=== PATIENT | female | born 1980 | race Caucasian/White ===

== ENCOUNTER → 2018-04-20 | Outpatient (CLI) | payer OTHER | LOC: FIMAGING 08:27 | PROVIDERS: ATTEND Obstetrics & Gynecology | DX: O09.512 Supervision of elderly primigravida, second trimester (principal); O44.02 Complete placenta previa NOS or without hemorrhage, second trimester; O99.412 Diseases of the circulatory system complicating pregnancy, second trimester; O99.512 Diseases of the respiratory system complicating pregnancy, second trimester; I45.9 Conduction disorder, unspecified; J45.909 Unspecified asthma, uncomplicated; Z3A.19 19 weeks gestation of pregnancy ==

== ENCOUNTER 2018-09-08 06:00 | Inpatient (IN) | payer OTHER ==
[2018-09-08] MEDS ORDERED: TERBUTALINE SULFATE 1 MG/ML VIAL IV PRN (06:58)
[2018-09-08] MEDS ORDERED: OLIVE OIL 118 ML BTL MISC PRN (06:58)
[2018-09-08] MEDS ORDERED: LR 1,000 ML IV PRN (06:58)
[2018-09-08] MEDS ORDERED: LIDOCAINE 1% 300 MG/30 ML SDV SC PRN (06:58)
[2018-09-08] MEDS ORDERED: OXYTOCIN/RINGERS LACTATE 1,000 ML IV PRN (06:58)
[2018-09-08] MEDS ORDERED: MISOPROSTOL 200 MCG TAB PR PRN (06:58)
[2018-09-08] MEDS ORDERED: EPSOM SALT 454 GM TP PRN (06:58)
[2018-09-08] MEDS ORDERED: IBUPROFEN 600 MG TAB PO PRN (06:58)
[2018-09-08 07:13] LABS: PLATELET COUNT 207 10^3/uL (150-400)
[2018-09-08] MEDS ORDERED: OXYTOCIN/RINGERS LACTATE 500 ML IV SCH (07:30)
[2018-09-08] MEDS ORDERED: AMMONIA AROMATIC 1 EACH AMP IH ONE (07:52)
[2018-09-08] MEDS ORDERED: LIDOCAINE 1% 300 MG/30 ML SDV ONE (07:52)
[2018-09-08] MEDS ORDERED: OLIVE OIL 118 ML BTL ONE (07:52)
[2018-09-08] MEDS ORDERED: MISOPROSTOL 200 MCG TAB ONE (07:53)
[2018-09-08] MEDS ORDERED: OXYTOCIN 10 UNIT/ML VIAL ONE (07:53)
[2018-09-08] MEDS ORDERED: TERBUTALINE SULFATE 1 MG/ML VIAL ONE (07:53)
--- NOTE | 2018-09-08 08:28 | PDGENHP ---
History and Physical - Chief Complaint Elective IOL - History of Present Illness 37 yo G1 at 40w0d by FELY on 08/29/18 (LMP c/w many 1st tri USs - she's a rn rehab at [facility]) - presents for elective/AMA IOL. Saw her in clinic yesterday afernoon where she was FT/40//-2 and I placed a Cook's balloon. Presented this AM reporting mild cramps overnight, but no regular contractions. Balloon still in place. 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 Does follow with Dr. Chaparro at [facility], no meds, and she has been cleared for routine labor and pushing/vaginal delivery. H/o LEEP in patient's 20's. Asthma (albuterol PRN). Torn rectus muscle off of pelvic attachment (has been seeing PT for this). Rh neg. Low lying placenta that resolved on 29 wk scan. Failed Glucola, passed 3hr GTT. Labs: A negative Antibody neg RPR NR Rubella IMMUNE HepB/HIV neg VZV IMMUNE GC/C neg AFP normal Quad neg 28 wk H/H 11.1/ Glucola 135 - Normal 3hr GBS NEGATIVE History Information - Allergies/Home Medication List Allergies/Adverse Reactions: No Known Allergies Allergy (Unverified 09/08/18 06:58) Home Medications: Albuterol [Proventil Inhaler HFA (*)] 09/08/18 [Last Taken Unknown] Breo Ellipta 100-25 Mcg INH PO 09/08/18 [Last Taken 09/08/18 06:00] Docusate Sodium [Colace] 09/08/18 [Last Taken 09/07/18 20:00] 09/08/18 [Last Taken 09/08/18] I have personally reviewed and updated: family history, medical history, social history, surgical history - Past Medical History Additional medical history: Variable AV (1st and 2nd degree) heart block, Anemia , Cervical dysplasia, Recctus muscle avulsion, AMA - Surgical History Additional surgical history: LEEP in 20s - Family History Positive for: non-pertinent - Social History Smoking Status: Former smoker (1 yr in college) Alcohol Use: None Review of Systems Review of Systems: ROS: 10pt was reviewed & negative except for what was stated in HPI & below Physical Exam Physical Exam: Appears well, comfortable, pleasant, NAD. Belly is soft, ND, gravid, longitudinal lie. Lab Data & Imaging Review 09/08/18 06:30 WBC 12.58 10^3/uL (3.80-9.50) H 09/08/18 06:30 RBC 4.00 10^6/uL (4.18-5.33) L 09/08/18 06:30 Hgb 11.7 g/dL (12.6-16.3) L 09/08/18 06:30 Hct 35.5 % (38.0-47.0) L 09/08/18 06:30 MCV 88.8 fL (81.5-99.8) 09/08/18 06:30 MCH 29.3 pg (27.9-34.1) 09/08/18 06:30 MCHC 33.0 g/dL (32.4-36.7) 09/08/18 06:30 RDW 15.4 % (11.5-15.2) H 09/08/18 06:30 Plt Count 207 10^3/uL (150-400) 09/08/18 06:30 MPV 10.4 fL (8.7-11.7) 09/08/18 06:30 Neut % (Auto) 77.2 % (39.3-74.2) H 09/08/18 06:30 Lymph % (Auto) 15.8 % (15.0-45.0) 09/08/18 06:30 [place] % (Auto) 4.8 % (4.5-13.0) 09/08/18 06:30 Eos % (Auto) 1.3 % (0.6-7.6) 09/08/18 06:30 Baso % (Auto) 0.3 % (0.3-1.7) 09/08/18 06:30 Nucleat RBC Rel Count 0.0 % (0.0-0.2) 09/08/18 06:30 Absolute Neuts (auto) 9.70 10^3/uL (1.70-6.50) H 09/08/18 06:30 Absolute Lymphs (auto) 1.99 10^3/uL (1.00-3.00) 10/24/18 06:30 Absolute Monos (auto) 0.61 10^3/uL (0.30-0.80) 09/08/18 06:30 Absolute Eos (auto) 0.16 10^3/uL (0.03-0.40) 09/08/18 06:30 Absolute Basos (auto) 0.04 10^3/uL (0.02-0.10) 09/08/18 06:30 Absolute Nucleated RBC 0.00 10^3/uL (0-0.01) 09/08/18 06:30 Immature Gran % 0.6 % (0.0-1.1) 09/08/18 06:30 Immature Gran # 0.08 10^3/uL (0.00-0.10) 09/08/18 06:30 Patient ABO/Rh A NEGATIVE 09/08/18 06:30 Antibody Screen NEGATIVE 09/08/18 06:30 Assessment & Plan Assessment: 37 yo G1 at 40w0d here for AMA/Elective IOL. IOL: - Will start Pit this AM and check and potentially take down balloon if not out spontaneously in the next 4 hours. AROM if needed. - FT/40/-2 in clinic yesterday AM prior to medeiros placement. - GBS negative. - Will want epidural, regular diet for now - aware of 2 hrs prior to epidural NPO. Variable AV Block: - No meds, no changes to labor management, inform anesthesia. Rh neg - RhoGam PP if indicated. Asthma - Albuterol PRN. GIA
[2018-09-08] MEDS ORDERED: BUPIVACAINE 0.25% 30 ML SDV ONE (14:51)
[2018-09-08] MEDS ORDERED: PHENYLEPHRINE HCL 100 MCG/ML SYR ONE (14:51)
[2018-09-08] MEDS ORDERED: fentaNYL 2MCG/ML/BUP 0.1% RTU 100 ML BAG EP ONE (14:51)
[2018-09-08] MEDS ORDERED: fentaNYL 100 MCG/2 ML INJ ONE (14:52)
[2018-09-08] MEDS ORDERED: ONDANSETRON 4 MG/2 ML VIAL IVP PRN (17:50)
[2018-09-08] MEDS ORDERED: PHENYLEPHRINE HCL 100 MCG/ML SYR IVP PRN (17:50)
--- NOTE | 2018-09-08 17:55 | PREANESOB ---
Obstetric Pre-Anesthesia Info - General Info Proposed Procedure: Labor and delivery with pitocin. : 1 Para: 0 FELY: 09/08/18 Gestational Age: 40 week(s) and 0 day(s) - Info Status: Full Term Monitors: External FHR Baseline (bpm): 135 FHR Pattern: Reassuring - Labor Status Cervical Dilation per last OB SVE: 3 Pitocin: In Use Indications for Labor Analgesia: Induction of Labor, Pain Control Labor Epidural: Proposed Anesthesia ROS: Prior general anesthesia. Allergies/Adverse Reactions: Allergy/AdvReac Type Severity Reaction Status Date / Time No Known Allergies Allergy Unverified 09/08/18 06:58 Home Medications: Medication Instructions Recorded Albuterol [Proventil Inhaler HFA 09/08/18 (*)] Breo Ellipta 100-25 Mcg INH PO 09/08/18 Docusate Sodium [Colace] 09/08/18 09/08/18 Visit Medications: Generic Name Dose Route Start Last Admin Trade Name Freq PRN Reason Stop Dose Admin Diphenhydramine HCl 25 - 50 mg 09/08/18 17:50 Benadryl Injection IVP 03/07/19 17:49 Q6HRS PRN Itching Lactated Ringer's 1,000 mls @ 0 mls/hr 09/08/18 06:58 09/08/18 07:52 Lr IV 09/09/18 06:57 1,000 mls PRN PRN Administration SEE PROTOCOL CONDITIONS Protocol Per Protocol Oxytocin/Lactated Ringer's 1,000 mls @ 125 mls/hr 09/08/18 06:58 Pitocin 20 Units/Lr (Premix) IV PRN PRN Post bleeding Oxytocin/Lactated Ringer's 500 mls @ 0 mls/hr 09/08/18 07:30 09/08/18 07:52 Pitocin 30 Units/Lr (Premix) IV 03/07/19 07:29 500 mls CONT SATYA Administration Per Protocol Fentanyl/Bupivacaine HCl 100 mls @ 0 mls/hr 09/08/18 18:00 Fentanyl/Bupivacaine/Ns 2 Mcg/Ml 0.1% (Premix EP 09/18/18 17:59 CONT SATYA Protocol As Directed Lactated Ringer's 500 mls @ 0 mls/hr 09/08/18 18:00 Lr IV 03/07/19 17:59 CONT SATYA As Directed Ibuprofen 600 mg 09/08/18 06:58 Motrin PO ONCE PRN post , pain Lidocaine HCl 300 mg 09/08/18 06:58 Lidocaine Hcl 1% SC 03/07/19 06:57 ONCE PRN episiotomy Magnesium Sulfate 454 gm 09/08/18 06:58 Epsom Salt TP 03/07/19 06:57 Q1H PRN perineal discomfort Misoprostol 800 - 1,000 mcg 09/08/18 06:58 Cytotec NC ONCE PRN Vaginal Atony/Bleeding [place] Oil 118 ml 09/08/18 06:58 Sweet Oil MISC 03/07/19 06:57 ONCE PRN perineal massage Ondansetron HCl 4 mg 09/08/18 17:50 Zofran IVP 09/09/18 17:49 Q4HRS PRN Nausea/Vomiting, Can't Take PO Phenylephrine HCl 100 mcg 09/08/18 17:50 Neosynephrine IVP 03/07/19 17:49 .Q2M PRN Hypotension Terbutaline Sulfate 0.25 mg 09/08/18 06:58 Brethine IV 03/07/19 06:57 ONCE PRN Tachysystole Discontinued Medications Generic Name Dose Route Start Last Admin Trade Name Freq PRN Reason Stop Dose Admin Ammonia (Aromatic Spirit) Confirm 09/08/18 07:52 Ammonia Aromatic Administered 09/08/18 07:53 Dose 1 each IH .STK-MED ONE Bupivacaine HCl Confirm 09/08/18 14:51 Sensorcaine 0.25% Sdv Administered 09/08/18 14:52 Dose 30 ml .ROUTE .STK-MED ONE Fentanyl Confirm 09/08/18 14:52 Sublimaze Administered 09/08/18 14:53 Dose 100 mcg .ROUTE .STK-MED ONE Fentanyl/Bupivacaine HCl Confirm 09/08/18 14:51 Fentanyl/Bupivacaine/Ns 2 Mcg/Ml 0.1% (Premix Administered 09/08/18 14:52 Dose 100 ml EP .STK-MED ONE Lidocaine HCl Confirm 09/08/18 07:52 Lidocaine Hcl 1% Administered 09/08/18 07:53 Dose 300 mg .ROUTE .STK-MED ONE Misoprostol Confirm 09/08/18 07:53 Cytotec Administered 09/08/18 07:54 Dose 1,000 mcg .ROUTE .STK-MED ONE [place] Oil Confirm 09/08/18 07:52 Sweet Oil Administered 09/08/18 07:53 Dose 118 ml .ROUTE .STK-MED ONE Oxytocin Confirm 09/08/18 07:53 Pitocin Administered 09/08/18 07:54 Dose 40 unit .ROUTE .STK-MED ONE Phenylephrine HCl Confirm 09/08/18 14:51 Neosynephrine Administered 09/08/18 14:52 Dose 1,000 mcg .ROUTE .STK-MED ONE Terbutaline Sulfate Confirm 09/08/18 07:53 Brethine Administered 09/08/18 07:54 Dose 1 mg .ROUTE .STK-MED ONE - Anesthesia History Response to Local Anesthetics: Normal Anesthesia & Operative History: No Prior Problems Family Anesthesia History: Negative - Social History Substance Use/Abuse: Denies - Vital Signs Blood Pressure: 121/66 Heart Rate: 81 Height/Weight (Nursing): Height 172.72 cm Weight 81.647 kg - Focused Exam Neck exam: FROM Mallampati Score: Class 1 Mouth exam: normal dental/mouth exam Pulmonary: no respiratory distress (History of mild asthma but no wheezing with this admission.) Cardiovascular: regular rate and rhythym (Past history of episodic second degree heart block resulting in fainting but has been cleared by cardiology for labor and delivery without any extra treatment or precautions.) Labs: 09/08/18 06:30 Patient ABO/Rh A NEGATIVE 09/08/18 06:30 - Plan Anesthetic Plan: CSE Consent Signed and on Chart: Yes Patient/Guardian Understands and Agrees to Plan: Yes Urgent/Emergent Case: Katalina madrid completed preop but documented later for safe timely pt care
[2018-09-08] MEDS ORDERED: fentaNYL 2MCG/ML/BUP 0.1% RTU 100 ML EP SCH (18:00)
[2018-09-08] MEDS ORDERED: LR 500 ML IV SCH (18:00)
--- NOTE | 2018-09-08 18:05 | POSTANESTH ---
Post Anesthetic Evaluation Cardiovascular Status: Normal, Stable, Similar to Pre-Op Cond Respiratory Status: Normal, Stable, Similar to Pre-op Cond., Requires Airway Assist Level of Consciousness/Mental Status: Alert and Oriented Pain Control: Adequate, Prn Tx Ordered Nausea/Vomiting Control: Adequate, Prn Tx Ordered Complications Possibly Related to Anesthesia: None Noted
--- NOTE | 2018-09-08 19:32 | OBPROG ---
Labor Progress Note Assessment/Plan: Assessment: 37 yo G1 at 40w0d - elective/AMA IOL. - Slow progress in latent labor, IUPC placed during this exam. - May have some scar tissue from h/o LEEP in her 20's. - OK to titrate Pit to 30. - Category II tracing, occasional early and variable decels. Overall reassuring. - Comfortable with epidural. JM Subjective/Intrapartum Course: Comfortable with epidural - can still sense ctx's, but not painful. Objective: 09/08/18 06:30 Patient ABO/Rh A NEGATIVE 09/08/18 06:30 Temp Pulse Resp BP Pulse Ox 81 121/66 H 09/08/18 18:05 09/08/18 18:05 - SVE Dilation (cm): 4 Effacement (%): 75 Station: -2 Membranes: AROM (Clear) Amniotic Fluid Color: Clear - Contraction Pattern Assessment Current Contraction Pattern: Regular - FHR Assessment [place] FHR (bpm): 135 FHR Pattern Variability: Moderate FHR Category: 2 - Procedures Non-surgical Procedures: Amniotomy, IUPC (During this exam) Oxytocin Orders Assessment - Pre-Induction/Augmentation Assessment Gestational Age: 40 week(s) and 0 day(s) ICD10 Worksheet Patient Problems: Problems Problem Status Onset Encounter for induction of labor Acute - ICD10 Problem Qualifiers (1) Encounter for induction of labor
[2018-09-08] MEDS ORDERED: ACETAMINOPHEN 500 MG TAB PO PRN (23:34)
--- NOTE | 2018-09-09 01:26 | OBDEL ---
Info Type: Vaginal Presentation at Delivery: Vertex L&D Analgesia/Anesthesia Type: Epidural GBS+: No Intrapartum Medications: Generic Name Dose Route Start Last Admin Trade Name Marilu PRN Reason Stop Dose Admin Acetaminophen 1,000 mg 09/08/18 23:34 09/08/18 23:45 Tylenol PO 03/07/19 23:33 1,000 mg Q6 PRN Administration FEVER/PAIN Diphenhydramine HCl 25 - 50 mg 09/08/18 17:50 09/08/18 19:14 Benadryl Injection IVP 03/07/19 17:49 25 mg Q6HRS PRN Administration Itching Lactated Ringer's 1,000 mls @ 0 mls/hr 09/08/18 06:58 09/08/18 07:52 Lr IV 09/09/18 06:57 1,000 mls PRN PRN Administration SEE PROTOCOL CONDITIONS Protocol Per Protocol Oxytocin/Lactated Ringer's 500 mls @ 0 mls/hr 09/08/18 07:30 09/08/18 07:52 Pitocin 30 Units/Lr (Premix) IV 03/07/19 07:29 500 mls CONT SATYA Administration Per Protocol Fentanyl/Bupivacaine HCl 100 mls @ 0 mls/hr 09/08/18 18:00 09/08/18 21:53 Fentanyl/Bupivacaine/Ns 2 Mcg/Ml 0.1% (Premix EP 09/18/18 17:59 100 mls CONT SATYA Administration Protocol As Directed Discontinued Medications Generic Name Dose Route Start Last Admin Trade Name Marilu PRN Reason Stop Dose Admin Oxytocin/Lactated Ringer's 1,000 mls @ 125 mls/hr 09/08/18 06:58 09/09/18 00: 58 Pitocin 20 Units/Lr (Premix) IV 1,000 mls PRN PRN Administration Post bleeding - Hospital Course Intrapartum: Comfortable with epidural - can still sense ctx's, but not painful. Indications for Delivery: Elective (AMA) Vaginal Delivery - Delivery Provider Delivery Physician/CNM: Angel Gong - Labor and Delivery Onset of Contractions Date: 09/07/18 Onset of Contractions Time: 23:00 Onset of Contractions Type: Augmented Rupture of Membranes Date: 09/08/18 Rupture of Membranes Time: 11:42 Rupture of Membranes Type: Artificial Amniotic Fluid Color: Clear Dilation Complete Date: 09/09/18 Dilation Complete Time: 00:12 Placenta Delivery Date: 09/09/18 Placenta Delivery Time: 00:52 Total Hours of Labor: 25 Non-surgical Procedures: Amniotomy, IUPC (During this exam) Laceration: 2nd Degree Repair: 3-0 Vaginal Sponge Count Correct: Yes Vaginal Needle Count Correct: Yes Vaginal Sweep Performed: Yes EBL: 300 Delivery Events: None Delivery Comment: Uncomplicated - delivered direct OA. Placenta delivered within 2 minutes spontaneously. 2nd degree repaired. EBL 300. Baby boy grunty but doing well, apgars 8/9 - Medications Labor Augmentation/Induction Methods Used: Pitocin, Bonilla Bulb Labor Augmentation/Induction Indication: Elective Data FELY: 09/08/18 Gestational Age: 40 week(s) and 1 day(s) [place] Delivery Date: 09/09/18 Delivery Time: 00:46 Sex of Infant: Male (Cuong) Weight (gm): 3458 g (7/10) Score (1 Min): 8 Score (5 Min): 9 Shoulder Dystocia Time Head Delivered: 00:46 Time Body Delivered: 00:46 ICD10 Worksheet Patient Problems: Problems Problem Status Onset Encounter for induction of labor Acute (spontaneous vaginal delivery) Acute - ICD10 Problem Qualifiers (1) Encounter for induction of labor (2) (spontaneous vaginal delivery)
[2018-09-09] MEDS ORDERED: HYDROCORTISONE 0.5% CREAM TP PRN (01:28)
[2018-09-09] MEDS ORDERED: SIMETHICONE 80 MG TAB CHEW PO PRN (01:28)
[2018-09-09] MEDS: ACETAMINOPHEN 325 MG TAB PO SCH ×4 (05:21→21:36)
[2018-09-09] MEDS: IBUPROFEN 600 MG TAB PO SCH ×3 (09:01→21:35)
[2018-09-09] MEDS: DOCUSATE SODIUM 100 MG CAP PO PRN ×2 (09:01→21:36)
--- NOTE | 2018-09-09 10:40 | OBPP ---
Progress Note Assessment/Plan: Assessment: 37 y/o PPD #0 s/p elective IOL @ 40 weeks Plan: Will begin iron QD. support and routine PPC. 09/09/18 10:36 Subjective/ Course: 09/09/18 10:34 Pt is doing well this am. She has min perineal pain and cramping controlled with Ibuprofen. She has ambulated and voided and has min lochia. She is working on breast feeding, but baby is sleepy this am. Objective: 09/09/18 04:50 Patient ABO/Rh A NEGATIVE 09/09/18 03:15 Temp Pulse Resp BP Pulse Ox 36.8 C 74 18 132/79 H 96 09/09/18 09:05 09/09/18 09:05 09/09/18 09:05 09/09/18 09:05 09/09/18 09:05 Uterine Position/Fundal Height: Umbilicus -2 Uterine Tone: Firm Physical Exam - Physical Exam General Appearance: alert, no apparent distress Neck: non-tender, full range of motion, supple Respiratory: chest non-tender, lungs clear, normal breath sounds Cardiac/Chest: regular rate, rhythm Abdomen: normal bowel sounds Extremities: swelling (tr), Jamil's sign (neg)
[2018-09-09] MEDS ORDERED: IRON POLYSAC/IRON HEME 28 MG TAB PO SCH (10:45)
[2018-09-09] MEDS: FERRO-SEQUELS 65 MG TAB.ER PO SCH (15:48)
[2018-09-10] MEDS: ACETAMINOPHEN 325 MG TAB PO SCH ×4 (03:17→21:18)
[2018-09-10] MEDS: IBUPROFEN 600 MG TAB PO SCH ×4 (03:17→21:18)
[2018-09-10] MEDS: FERRO-SEQUELS 65 MG TAB.ER PO SCH (09:04)
[2018-09-10] MEDS: DOCUSATE SODIUM 100 MG CAP PO PRN (09:08)
--- NOTE | 2018-09-10 10:35 | OBPP ---
Progress Note Assessment/Plan: Assessment: PPD#1 s/p , doing well, working on - concerns about baby being "tongue-tied". Plan: Continue routine cares and anticipate dc home tomorrow. Lara Woo MD, FACOG [facility] 09/10/18 13:56 Subjective/ Course: 09/09/18 10:34 Pt is doing well this am. She has min perineal pain and cramping controlled with Ibuprofen. She has ambulated and voided and has min lochia. She is working on breast feeding, but baby is sleepy this am. 09/10/18 13:58 Doing well. Ambulating and voiding without difficulty. Min- mod lochia. Working on , concerns about baby being "tongue-tied". Pain well controlled with po meds. Objective: 09/09/18 04:50 Patient ABO/Rh A NEGATIVE 09/09/18 03:15 Temp Pulse Resp BP Pulse Ox 36.7 C 87 20 118/70 94 09/09/18 20:00 09/09/18 20:00 09/09/18 20:00 09/09/18 20:00 09/09/18 20:00 Gen - pleasant, NAD CV - RRR chest - CTAB abd - soft, NT, fundus firm at u-2, NT ext - 2+ pitting BLE edema, no calf tenderness, Jamil's neg, symmetric perineum - min edema, repair intact Uterine Position/Fundal Height: Umbilicus -2 Uterine Tone: Firm
[2018-09-10] MEDS: oxyCODONE IR 5 MG TAB PO PRN (21:52)
[2018-09-11] MEDS: IBUPROFEN 600 MG TAB PO SCH ×2 (03:46→09:41)
[2018-09-11] MEDS: oxyCODONE IR 5 MG TAB PO PRN ×3 (03:46→13:10)
[2018-09-11] MEDS: ACETAMINOPHEN 325 MG TAB PO SCH ×2 (03:46→09:40)
[2018-09-11] MEDS: FERRO-SEQUELS 65 MG TAB.ER PO SCH (08:54)
[2018-09-11] MEDS: DOCUSATE SODIUM 100 MG CAP PO PRN (08:54)
--- NOTE | 2018-09-11 12:39 | OBPP ---
Progress Note Assessment/Plan: Assessment/plan 37 yo ppd# 2 s/p breast feeding rh negative baby rh positive - rhogam given routine post care and discharge instructions 09/11/18 12:35 Subjective/ Course: 09/09/18 10:34 Pt is doing well this am. She has min perineal pain and cramping controlled with Ibuprofen. She has ambulated and voided and has min lochia. She is working on breast feeding, but baby is sleepy this am. 09/10/18 13:58 Doing well. Ambulating and voiding without difficulty. Min- mod lochia. Working on , concerns about baby being "tongue-tied". Pain well controlled with po meds. 09/11/18 12:38 patient is doing well. very happy with care. pain is well controlled with ibuprofen and occasional use of norco. denies headache and changes in vision. working on breast feeding. met with and ent re possible tongue tie for baby. voiding without difficulty. normal lochia. ready to go home. discharge instructions reviewed. mood precautions. Objective: 09/09/18 04:50 Patient ABO/Rh A NEGATIVE 09/09/18 03:15 Temp Pulse Resp BP Pulse Ox 36.5 C 89 16 121/82 H 94 09/10/18 20:00 09/10/18 20:00 09/10/18 20:00 09/10/18 20:00 09/10/18 20:00 Physical Exam - Physical Exam Neck: non-tender, full range of motion, supple Respiratory: chest non-tender, lungs clear, normal breath sounds Cardiac/Chest: normal peripheral pulses, regular rate, rhythm Abdomen: normal bowel sounds, hypoactive bowel sounds, non-tender Extremities: normal range of motion, non-tender, normal inspection, normal capillary refill Skin: normal color, warm/dry Neuro/Psych: no motor/sensory deficits, alert, normal mood/affect, oriented x 3
--- NOTE | 2018-09-11 12:48 | OBGCSDC ---
General Delivery Information - General Info : 1 Para: 1 Abortions: 0 Type: Vaginal L&D Analgesia/Anesthesia Type: Epidural Admission Date: 09/08/18 Labs: Patient ABO/Rh A NEGATIVE 09/09/18 03:15 Hct 30.9 % (38.0-47.0) L 09/09/18 04:50 - Hospital Course Intrapartum: Comfortable with epidural - can still sense ctx's, but not painful. : 09/09/18 10:34 Pt is doing well this am. She has min perineal pain and cramping controlled with Ibuprofen. She has ambulated and voided and has min lochia. She is working on breast feeding, but baby is sleepy this am. 09/10/18 13:58 Doing well. Ambulating and voiding without difficulty. Min- mod lochia. Working on , concerns about baby being "tongue-tied". Pain well controlled with po meds. 09/11/18 12:38 patient is doing well. very happy with care. pain is well controlled with ibuprofen and occasional use of norco. denies headache and changes in vision. working on breast feeding. met with and ent re possible tongue tie for baby. voiding without difficulty. normal lochia. ready to go home. discharge instructions reviewed. mood precautions. Vaginal - Delivery Provider Delivery Physician/CNM: Angel Gong - Diagnosis Labor: Augmented Rupture of Membranes Type: Artificial Amniotic Fluid Color: Clear Laceration: 2nd Degree Repair: 3-0 Delivery Events: None - Procedures Non-surgical Procedures: Amniotomy, IUPC (During this exam) - Delivery Non-surgical Procedures: Amniotomy, IUPC (During this exam) EBL: 300 [place] Data FELY: 09/08/18 Gestational Age: 40 week(s) and 3 day(s) [place] Delivery Date: 09/09/18 Delivery Time: 00:46 Sex of Infant: Male Weight (gm): 3446 g Score (1 Min): 8 Score (5 Min): 9 Discharge Information - Discharge Information Prescriptions: oxyCODONE IR [Oxycodone Ir (*)] 5 - 10 mg PO Q4HRS PRN #5 tab PRN Reason: Pain, Severe Able To Take Po Condition: Good Instruction/Follow Up: Four Weeks (post wellness center), Six Weeks ( post visit)
[2018-09-11 14:46] VITALS: BP 116/71
== END 2018-09-11 13:30 | disposition home or self-care (01) | DRG 807 ==
LOC: FLD 06:28 → FOB 09-09 04:46
PROVIDERS: ADMIT Obstetrics & Gynecology; ATTEND Obstetrics & Gynecology
DX: O70.1 Second degree perineal laceration during delivery (principal); O26.893 Other specified pregnancy related conditions, third trimester; Z67.91 Unspecified blood type, Rh negative; Z3A.40 40 weeks gestation of pregnancy; Z37.0 Single live birth
CPT/HCPCS: J1200; J2370; J2590; J3010; J3105